=== PATIENT | female | born 1975 | race Caucasian/White ===

== ENCOUNTER 2021-07-24 01:43 | Day surgery (SDC) | payer OTHER, SELFPAY ==
[2021-07-17 13:56] VITALS: BMI 20.5
--- NOTE | 2021-07-17 14:06 | PC.NURSE ---
Report to the Outpatient Waiting Room, entrance under the green pavilion located off [facility], at time 8:30 on date 10:30. OR Time: 10:30. - You and your visitor will be asked a series of questions to screen for COVID 19 for your protection. - A mask is required within the hospital. - Only one visitor is allowed at this time. Patient visitors will be guided where to wait when not with patient. Preoperative COVID Testing Requirements: No COVID Test needed if: (proof is required; if not received patient will have Rapid Test prior to entry) - Patient has received COVID Vaccine at least 14 days prior to procedure date or - Patient has positive COVID test result within last 90 days of surgery date. COVID Test needed if above criteria is not met If not COVID vaccinated a COVID test must be conducted within 72 hours of surgery and patient is asked to isolate self from time of testing until procedure. You will go to the [facility] for your COVID testing. The [facility] Testing site is located at the corner of [address] [facility]. HAVING COVID TEST DONE 07/21 AND EMAILING RESULTS TO [email or web address] You will only be called if COVID results are positive and your surgeon may reschedule your elective surgery date. Patients may have clear liquids (water, carbonated beverages, clear teas, apple juice) until 3 hours prior to surgery with a maximum of 20 ounces. - No food from midnight until time of surgery - Infants may have breast milk until 4 hours before surgery, formula 6 hours prior to surgery. - Children will be allowed to drink immediately following surgery. If applicable, please bring a bottle or sippy cup to assist with drinking. Juice, water, soda, and popsicles are readily available. For infants on formula, please bring formula the day of surgery. Pacifiers are allowed. Take the following medications with a SIP of water the morning of surgery: N/A Medications to discontinue per physician N/A Date to take last dose N/A Please no make-up, nail latvian, hairspray, perfume, deodorant, or body powder the day of surgery. No jewelry (including any body piercings) or valuables the day of surgery, leave them at home. Please take a shower or bath the night before, or the morning of, surgery with an antibacterial soap. Wear comfortable, loose fitting clothing. Children are encouraged to wear pajamas. - Jewelry must be removed prior to entering the operating room. Rings and piercings that are not removed may be cut off. - The hospital will not accept responsibility for valuables. - Please leave all valuables, including medications, at home the day of surgery. If you are going home after surgery, a licensed water truck driver must drive you home. - NO public transportation without another adult. - We recommend that an adult stay with you for 24 hours following discharge. - We also recommend that you do not drive, make important decision, drink alcoholic beverages, or take any drugs that were not prescribed by your health care provider for at least 24 hours after your discharge time. For Pediatric surgeries, we recommend two adults accompany the child home (only one inside the building at this time). Follow any additional instructions given to you from your surgeon. Telephone instructions given to LILIAN NEAL and asked if any additional questions and then verbalized understanding. Patient advised to call surgeon office or pre surgery nurse liaison [phone] if any additional questions.
--- NOTE | 2021-07-24 07:27 | WPDHPUPDATE1 ---
History and Physical Update Update Date/Time: 07/24/21 07:27 History and Physical has been reviewed, including an updated exam of the patient. There are NO changes in the patient's condition. Risks, benefits, and alternatives have been discussed and questions answered. Patient agrees to proceed with procedure.
--- NOTE | 2021-07-24 07:28 | PM.HPGS ---
History of Present Illness History of Present Illness Consent: Risks, benefits, and alternatives have been discussed and questions answered. Patient agrees to proceed with procedure. Chief complaint: post coil bleeding, abnormal uterine bleeding Narrative: Mahogany Alonzo is a 45 year old female With post coital bleeding. On exam the patient has a large endocervical polyp that she does not tolerate removal in the office. Was recommended to proceed with D&C hysteroscopy and removal of polyp in the operating room. Risks of infection, bleeding, and perforation were reviewed. Possible pathology was discussed. Patient agrees to proceed. Review of Systems Review of Systems: All systems reviewed & are unremarkable except as noted in HPI and below ( History of present illness) [facility] Past Medical History Medical History (Updated 07/24/21 @ 07:33 by Soraida Perez MD) (normal spontaneous vaginal delivery) x3 Status post hysteroscopy with laparoscopy for removal of perforated IUD in 2003 also in 2011 for menorrhagia Surgical History Surgical History (Updated 07/24/21 @ 07:32 by Soraida Perez MD) Status post breast biopsy Status post laparoscopic cholecystectomy Family History Family History (Updated 05/13/14 @ 07:13 by DOCTOR UNKNOWN) Other Family history of malignant neoplasm of cervix Family history of malignant neoplasm of male breast Social History Social History Smoking status: Never smoker Alcohol intake: never Substance use: never Substance use type: does not use Living arrangements: with family Spiritual care concerns: No Meds Home Medications and Allergies Home Medications Medication Instructions Recorded Confirmed Type etonogestrel-ethinyl estradiol 1 vag ring VAGINAL MONTHLY 07/17/21 07/17/21 History Allergies Allergy/AdvReac Type Severity Reaction Status Date / Time Sulfa (Sulfonamide Allergy Intermediate Blister Verified 07/17/21 13:54 Antibiotics) Exam Const: General: healthy appearing and alert Orientation/consciousness: patient oriented x3 Resp: Effort & Inspection: normal respiratory effort Auscultation: clear to auscultation bilaterally Cardio: Rate: regular rate Rhythm: regular rhythm GI: GI Palp: Yes Soft to palpation, No Tenderness to palpation present (GI) and No Palpable mass present : External Female Exam: normal external appearance Speculum Exam - Vagina: normal appearance of the vagina and normal vaginal discharge Speculum Exam - Cervix: normal appearance of the cervix and Other cervical findings present ( cervical polyp present) Bimanual exam- vagina & uterus: uterine size normal and consistency normal Bimanual Exam- Adnexa, other: normal adnexae and No adnexal tenderness Neuro: General: patient oriented x3 Assessment and Plan Assessment and plan (1) Postcoital bleeding: Code(s): N93.0 - Postcoital and contact bleeding Status: Acute Assessment and Plan: recurrent endocervical polyp with bleeding. Patient did not tolerate remove in the office plan is to proceed with removal in the office in addition plan is to proceed with hysteroscopy to verify no additional polyps within the uterine cavity.
--- NOTE | 2021-07-24 07:42 | WPDANESEPPF ---
Anes - Initial Pre Proc Eval Procedure: Operation Date: 07/24/21 11:15 Proposed Procedures p Hysteroscopy Dilation and Curettage - Soraida Perez MD Date/Time: 07/24/21 07:42 Surgeon: Soraida Perez MD Pre Op Diagnosis: post coil bleeding, abnormal uterine bleeding Patient Data Age: 45 Gender: F Height: 1.63 m Weight: 54.43 kg Allergies Allergy/AdvReac Type Severity Reaction Status Date / Time Sulfa (Sulfonamide Allergy Severe Blister Verified 07/24/21 09:45 Antibiotics) Home Medications Medication Instructions Recorded Confirmed Type etonogestrel-ethinyl estradiol 1 vag ring VAGINAL MONTHLY 07/17/21 07/24/21 History Patient hx anesthesia problems: none Family hx anesthesia problems: none Results Review: All pre-operative results and documents have been reviewed as part of the pre-operative evaluation. [facility] Past Medical History Medical History (Updated 07/24/21 @ 07:33 by Soraida Perez MD) (normal spontaneous vaginal delivery) x3 Status post hysteroscopy with laparoscopy for removal of perforated IUD in 2003 also in 2011 for menorrhagia Surgical History Surgical History (Updated 07/24/21 @ 07:32 by Soraida Perez MD) Status post breast biopsy Status post laparoscopic cholecystectomy Family History Family History (Updated 05/13/14 @ 07:13 by DOCTOR UNKNOWN) Other Family history of malignant neoplasm of cervix Family history of malignant neoplasm of male breast Social History Social History Smoking status: Never smoker Alcohol intake: never Substance use: never Substance use type: does not use Living arrangements: with family Spiritual care concerns: No Anes - Eval Final PreProcedure Day of Procedure 07/24/21 07:42 Patient weight: normal Heart: regular rate and rhythm Lungs: clear to auscultation and normal air movement Airway: Mallampati scale class II Neurological: alert and oriented Last oral intake: >/= 8 hours ASA classification: I Emergent: no Anesthetic plan: proceed Anesthesia type and monitoring: general GIVS and LMA Results Review: All pre-operative results and documents have been reviewed as part of the pre-operative evaluation. Informed Consent: The patient's anesthetic plan and its attendant risks and benefits were discussed with the patient/family/POA. Questions were solicited and answers provided to the satisfaction of the patient/family/POA.
[2021-07-24] MEDS: ACETAMINOPHEN 500 MG TABLET 1000 MG PO (09:58)
[2021-07-24] MEDS: LACTATED RINGERS 1,000 ML 30 ML IV CONT (10:07)
[2021-07-24 10:13] VITALS: BP 118/80; PULSE 88; TEMP 37.1; O2SAT 100
[2021-07-24] MEDS: KETOROLAC 30 MG/ML VIAL (*BKC) IV PUSH (10:51)
[2021-07-24 10:58] VITALS: BP 102/68; PULSE 70; RESP 16; O2SAT 98
--- NOTE | 2021-07-24 11:12 | P.OP_ITS ---
Procedure Note - Detailed Date of Procedure 07/24/21 Pre-op Diagnosis post coital bleeding, abnormal uterine bleeding Post-op Diagnosis same Procedure Performed excision of endocervical polyp; D&C hysteroscopy Surgeon Soraida Perez MD Anesthesia MAC and local Findings 3x1cm irregular cervical polyp; uterus is 7cm and retroverted; endometrium appears secretory Description of Procedure the patient was taken to the operating room and placed under anesthesia in the dorsal lithotomy position. She was prepped and draped in the usual sterile fashion. [place] speculum was placed in the vagina and the cervix is grasped on the anterior lip with a tenaculum. The cervical polyp is grasped and removed in pieces with a ring forceps. The base of the polyp was cauterized with Bovie. The uterus is sounded to 7cm and noted to be retroverted. The cervix is serially dilated with Hegar. The diagnostic hysteroscope was placed with the stated findings. The medium sharp curette is used to curette the endometrium until a good uterine cry was noted in all areas. All instruments are removed. Sponge, needle, and instrument counts are correct per the OR staff. Patient is awakened from anesthesia and taken to recovery in stable condition. Estimated Blood Loss 5 Drains No Packing No Pathology yes ( Endocervical polyp; endometrial curettings) Complications No immediate complications Condition stable Disposition PACU
[2021-07-24 11:25] VITALS: BP 126/92; PULSE 81; RESP 16; O2SAT 100
[2021-07-24] MEDS: fentaNYL CITRATE INJ (*CRX) 100 MCG/2 ML VIAL 25 MCG IV PUSH (11:31)
[2021-07-24] MEDS: oxyCODONE HCL (*CRX) 5 MG TAB IR PO (11:42)
[2021-07-24 12:05] VITALS: BP 114/74; PULSE 57; RESP 16
[2021-07-24] MEDS: ONDANSETRON INJ 4 MG/2 ML VIAL IV PUSH (12:12)
== END 2021-07-24 12:35 | disposition home or self-care (01) ==
PROVIDERS: PCP Family Medicine; Visit Provider Obstetrics & Gynecology Gynecology
PROC: 0U5B8ZZ Destruction of Endometrium, Via Natural or Artificial Opening Endoscopic (ICD-10-PCS; CPT 58563; principal; 2021-07-24 11:15)
DX: N93.0 Postcoital and contact bleeding (principal); N39.0 Urinary tract infection, site not specified; N93.9 Abnormal uterine and vaginal bleeding, unspecified; N84.1 Polyp of cervix uteri; Z90.49 Acquired absence of other specified parts of digestive tract; N85.4 Malposition of uterus
CPT/HCPCS: 58558; 88305; A9270; J1100; J1170; J1885; J2250; J2405; J2704; J3010; J7030; J7120